=== PATIENT | male | born 1965 | race Caucasian/White ===

== ENCOUNTER 2022-03-12 12:02 | Inpatient (IN) | payer MEDICARE, OTHER ==
[2022-03-12 14:29] LABS: Glucose,Whole Blood 90 mg/dL (75-99)
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
[2022-03-12 14:34] LABS: Basophils # (A) 0.1 k/uL (0-0.2); Basophils % (A) 1 %; Eosinophils # (A) 0.1 k/uL (0-0.7); Eosinophils % (A) 3 %; HCT 45.8 % (39.0-53.0); Lymphocytes # (A) 1.8 k/uL (1.0-4.8); Lymphocytes % (A) 31 %; MCH 32.3 pg (25.0-35.0); MCHC 32.6 g/dL (31.0-37.0); Mean Platelet Volume 7.4; Monocytes # (A) 0.4 k/uL (0-1.0); Monocytes % (A) 7 %; Neutrophils # (A) 3.1 k/uL (1.3-7.7); Neutrophils % (A) 56 %; Platelet Count 330 k/uL (150-450); RBC 4.63 m/uL (4.30-5.90); RDW 13.1 % (11.5-15.5); WBC 5.6 k/uL (3.8-10.6)
[2022-03-12 14:43] LABS: ALT 24 U/L (4-49); AST 29 U/L (17-59); African American GFR (CKD) >90 (>60 ml/min/1.73 sqM); Albumin 4.5 g/dL (3.5-5.0); Alkaline Phosphatase 74 U/L (38-126); Anion Gap 3 mmol/L; Blood Urea Nitrogen 13 mg/dL (9-20); Calcium 9.4 mg/dL (8.4-10.2); Carbon Dioxide 31 mmol/L (22-30); Chloride 103 mmol/L (98-107); Glucose 98 mg/dL (74-99); Non-African American GFR(CKD) >90 (>60 ml/min/1.73 sqM); Sodium 137 mmol/L (137-145); Total Bilirubin 0.6 mg/dL (0.2-1.3); Total Protein 7.1 g/dL (6.3-8.2)
[2022-03-12 14:44] LABS: INR 0.9 (<1.2); Partial Thromboplastin Time 30.2 sec (22.0-30.0); Prothrombin Time 10.3 sec (9.0-12.0)
--- NOTE | 2022-03-12 15:20 | CT ---
EXAMINATION TYPE: CT brain wo con DATE OF EXAM: 03/12/2022 COMPARISON: MRI dated 01/05/2013 HISTORY: Sudden vision loss RT eye CT DLP: 1176.6 mGycm Automated exposure control for dose reduction was used. TECHNIQUE: CT scan of the brain is performed without IV contrast administration. FINDINGS: Left occipitoparietal cortical and subcortical acute infarct without significant hemorrhagic transfor mation. Right frontal cortical and subcortical area of encephalomalacia, possibly representing sequel a of previous trauma/surgical intervention. No acute intracranial hemorrhage. No midline shift, herniation or ventriculomegaly. Unremarkable basa l cisterns, sella and CP angles. Unremarkable orbits. Clear visualized paranasal sinuses and mastoid air cells. Previous right frontop arietal craniotomy. IMPRESSION: Acute left occipitoparietal cortical and subcortical infarct as described above, for urgent neurology consultation.
--- NOTE | 2022-03-12 15:42 | CT ---
EXAMINATION TYPE: CT angio head neck DATE OF EXAM: 03/12/2022 HISTORY: Sudden vision loss RT eye COMPARISON: None available CT DLP: 612.17 mGycm. Automated Exposure Control for Dose Reduction was Utilized. TECHNIQUE: CTA scan of the head and neck is performed with IV Contrast, patient injected with 65 mL of Isovue 370, axial images are obtained, coronal and sagittal reformatted images are reviewed. 3D re constructed images are created on an independent workstation and reviewed. FINDINGS: Carotid/Vascular Structures: Normal caliber and enhancement of the neck arteries and intracranial art eries without significant stenosis, occlusion, dissection, aneurysm or AV malformation. Patent major intracranial venous sinuses. Other: Degenerative changes of the cervical spine. IMPRESSION: No significant arterial abnormality identified.
[2022-03-12] MEDS ORDERED: ASPIRIN 81 MG PO STA (17:06)
--- NOTE | 2022-03-12 17:07 | XR ---
EXAMINATION TYPE: XR chest 2V DATE OF EXAM: 03/12/2022 COMPARISON: NONE HISTORY: Vision loss. Headache. TECHNIQUE: 2 views FINDINGS: Heart is normal. Lungs are clear of consolidation. There are no hilar masses. Costophrenic angles are clear. Bony thorax is intact. IMPRESSION: No active cardiopulmonary disease. Normal heart.
[2022-03-12] MEDS: SODIUM CHLORIDE 0.9% 1,000 ML IV SCH (17:26)
[2022-03-12] MEDS: ATORVASTATIN 20 MG TAB PO SCH (17:27)
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
--- NOTE | 2022-03-12 18:08 | US ---
EXAMINATION TYPE: US carotid duplex BILAT DATE OF EXAM: 03/12/2022 COMPARISON: NONE CLINICAL HISTORY: stroke. stroke EXAM MEASUREMENTS: RIGHT: Peak Systolic Velocity (PSV) cm/sec ----- Right CCA: 68.0 ----- Right ICA: 74.1 ----- Right ECA: 60.1 ICA/CCA ratio: 1.1 RIGHT: End Diastole cm/sec ----- Right CCA: 21.7 ----- Right ICA: 32.2 ----- Right ECA: 11.3 LEFT: Peak Systolic Velocity (PSV) cm/sec ----- Left CCA: 84.5 ----- Left ICA: 93.1 ----- Left ECA: 47.0 ICA/CCA ratio: 1.1 LEFT: End Diastole cm/sec ----- Left CCA: 26.3 ----- Left ICA: 36.1 ----- Left ECA: 10.4 VERTEBRALS (direction of flow): Right Vertebral: Antegrade Left Vertebral: Antegrade Rhythm: Normal Mild plaque bilateral bifurcations. no evidence of increased velocities IMPRESSION: There is antegrade flow in the vertebral arteries. The images and measurements suggest less than 20% stenosis in both internal carotid arteries. Criteria for Assigning % of Stenosis / Diameter reduction (Estimation based on the indirect measurements of the internal carotid artery velocities (ICA PSV). 1. Normal (no stenosis)=ICA PSV < 125 cm/s: ratio < 2.0: ICA EDV<40 cm/s. 2. Less than 50% stenosis=ICA PSV < 125 cm/s: ratio < 2.0: ICA EDV<40 cm/s. 3. 50 to 69% stenosis=ICA PSV of 125 to 230 cm/s: ration 2.0 ? 4.0: ICA EDV 40-100 cm/s. 4. Greater than 70% stenosis to near occlusion= ICA PSV > 230 cm/s: ratio > 4.0: ICA EDV > 100 cm/s. 5. Near occlusion= ICA PSV velocities may be low or undetectable: variable ratio and ICA EDV. 6. Total occlusion=unable to detect flow.
[2022-03-12] MEDS: PRAMIPEXOLE 1 MG TAB PO SCH (21:16)
[2022-03-12] MEDS: HEPARIN SODIUM,PORCINE/PF 5,000 UNIT/0.5 ML SYRINGE SQ SCH (21:17)
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
[2022-03-13] MEDS: HEPARIN SODIUM,PORCINE/PF 5,000 UNIT/0.5 ML SYRINGE SQ SCH ×2 (08:46→19:44)
[2022-03-13] MEDS: ATORVASTATIN 20 MG TAB PO SCH (08:46)
[2022-03-13] MEDS ORDERED: ASPIRIN 81 MG PO SCH (09:00)
[2022-03-13] MEDS ORDERED: CLOPIDOGREL 75 MG TAB PO SCH (09:00)
[2022-03-13 10:10] LABS: Basophils % (A) 1 %; Eosinophils # (A) 0.2 k/uL (0-0.7); Eosinophils % (A) 3 %; HCT 47.6 % (39.0-53.0); HGB 14.8 gm/dL (13.0-17.5); Lymphocytes # (A) 1.8 k/uL (1.0-4.8); Lymphocytes % (A) 30 %; MCH 31.3 pg (25.0-35.0); MCHC 31.2 g/dL (31.0-37.0); MCV 100.3 fL (80.0-100.0); Mean Platelet Volume 7.6; Monocytes # (A) 0.5 k/uL (0-1.0); Monocytes % (A) 8 %; Neutrophils # (A) 3.3 k/uL (1.3-7.7); Neutrophils % (A) 55 %; Platelet Count 367 k/uL (150-450); RBC 4.75 m/uL (4.30-5.90); RDW 13.2 % (11.5-15.5)
[2022-03-13 14:42] LABS: ALT 22 U/L (4-49); AST 28 U/L (17-59); African American GFR (CKD) >90 (>60 ml/min/1.73 sqM); Albumin 4.3 g/dL (3.5-5.0); Alkaline Phosphatase 70 U/L (38-126); Anion Gap 7 mmol/L; Blood Urea Nitrogen 15 mg/dL (9-20); Calcium 9.3 mg/dL (8.4-10.2); Carbon Dioxide 26 mmol/L (22-30); Chloride 104 mmol/L (98-107); Glucose 112 mg/dL (74-99); Non-African American GFR(CKD) >90 (>60 ml/min/1.73 sqM); Potassium 4.6 mmol/L (3.5-5.1); Sodium 137 mmol/L (137-145); Total Bilirubin 0.6 mg/dL (0.2-1.3); Total Protein 6.9 g/dL (6.3-8.2)
[2022-03-13] MEDS: SODIUM CHLORIDE 0.9% 1,000 ML IV SCH (16:58)
[2022-03-13] MEDS: PRAMIPEXOLE 1 MG TAB PO SCH (19:44)
--- NOTE | 2022-03-13 20:45 | CONS ---
CONSULTATION CHIEF COMPLAINT: Decreased vision, right eye, associated with loss of part of the vision. HISTORY OF PRESENT ILLNESS: The patient yesterday developed loss of vision in the right eye, partial, mainly on the right temporal, as he explained, while watching TV. The patient has had a lazy left eye since childhood. The patient denied any headache or pain. The patient denies any history of hypertension or diabetes. Medical system was reviewed. EYE EXAMINATION: Vision right eye 20/25 with reading glasses, and left eye 20/400. Extraocular motility full. Lids normal. Pupils equal and reactive with no relative pupillary defect. Intraocular pressure 19 mmHg, both eyes. Lens shows 1+ nuclear sclerosis. Retina dilated exam within normal limits. Confrontation was full today. ASSESSMENT: Right visual field defect secondary to vascular phenomena. No solid visual field defect was detected today with confrontation. Visual antony are more specific. Patient is advised to have a visual field in the office. MRI is scheduled tomorrow morning. Carotid Doppler should be performed to evaluate the circulation. I will see the patient in the office after discharge if he requests. MMODL / IJN: [id number] /
--- NOTE | 2022-03-14 01:55 | P.PN ---
Subjective Progress Note Date: 03/13/22 This is a 56 year old male who was admitted with right heminanopia that was found by opthalmologist and sent to the ER for further evaluation to find his brain ct was positive for acute, subacute left occipitoparietal cortical and subcortical infarction. Patient is being closely monitored by neurology and opthalmology and undergoing neurological work-up. Carotid less than 20% stenosis with moderate plaque noted and awaiting brain MRI. Patient denies any chest pain or shortness of breath. Patient is afebrile. Patient continues with some visual deficits. Patient is extremely anxious to go home. Review of systems: Constitutional: No reports of fatigue, fever, or chills Cardiovascular: No reports of chest pain or palpitations Respiratory: No reports of shortness of breath or cough GI: no reports of nausea, no reports of of vomiting : No reports of dysuria or retention Neurovascular: no reports of generalized weakness All medications have been reviewed Active Medications Aspirin (Aspirin 81 Mg) 81 mg PO DAILY [facility] Last Admin: 03/13/22 08:47 Dose: 81 mg Atorvastatin Calcium (Atorvastatin 20 Mg Tab) 20 mg PO DAILY [facility] Last Admin: 03/13/22 08:46 Dose: 20 mg Clopidogrel Bisulfate (Clopidogrel 75 Mg Tab) 75 mg PO DAILY [facility] Last Admin: 03/13/22 08:47 Dose: 75 mg Heparin Sodium (Porcine) (Heparin Sodium,Porcine/Pf 5,000 Unit/0.5 Ml Syringe) 5,000 unit SQ Q12HR [facility] Last Admin: 03/13/22 19:44 Dose: 5,000 unit Sodium Chloride (Saline 0.9%) 1,000 mls @ 20 mls/hr IV .Q24H [facility] Last Admin: 03/13/22 16:58 Dose: Not Given Pramipexole Dihydrochloride (Pramipexole 1 Mg Tab) 3 mg PO HS [facility] Last Admin: 03/13/22 19:44 Dose: 3 mg PHYSICAL EXAMINATION: GENERAL: The patient is alert and oriented x4, Well developed, well nourished. HEENT: Pupils are round and equally reacting to light. EOMI. no scleral icterus. No conjunctival pallor. Normocephalic, atraumatic. No pharyngeal erythema. No thyromegaly. CARDIOVASCULAR: S1 and S2 muffled PULMONARY: diminished breath sounds bilaterally with no wheezing or rhonchi noted. ABDOMEN: soft. Nontender on exam. obese. non-distended, normoactive bowel sounds. No palpable organomegaly. MUSCULOSKELETAL: No joint swelling or deformity. EXTREMITIES: No cyanosis, clubbing, or pedal edema. NEUROLOGICAL: Gross neurological examination did not reveal any focal deficits. left visual diminished SKIN: No rashes. 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 Patient is positive for stroke and has been started on statin, plavix, and aspirin. Neuro and opthalm following and work up in progress. Patient is awaiting MRI of the brain. Patient will need neuro follow up in the outpatient setting. Possible event monitor and close cardiology follow up outpatient. Patient is extremely anxious to go home although working on encouraging him to stay to complete the work-up. MRI was delayed as there are several stat cases before him. Recommend to continue neuro checks and await mri. Prognosis is guarded. Possible discharge in 24 hours. The impression and plan of care has been dictated by Sharon Granados, nurse practitioner as directed. MD Holly I have performed a history and examination and MDM of this patient, discussed the same with the dictator, and agree with the dictator's assessment and plan as written ,documented as a scribe. Based on total visit time, I have performed more than 50% of the visit. Any additional findings or plans will be noted. Objective - Vital Signs Vital signs: Vital Signs Temp 98.1 F 03/13/22 12:00 Pulse 71 03/13/22 12:00 Resp 16 03/13/22 12:00 BP 121/78 03/13/22 12:00 Pulse Ox 96 03/13/22 12:00 FiO2 Intake & Output 03/12/22 03/13/22 03/13/22 18:59 06:59 18:59 Intake Total 540 Balance 540 Weight 88.451 kg 88.451 kg Intake: Oral 540 Other: Voiding Method Toilet Toilet Urinal Urinal # Voids 0 1 - Labs CBC & Chem 7: 03/13/22 09:16 03/13/22 09:16 Labs: Abnormal Lab Results - Last 24 Hours (Table) 03/13/22 03/13/22 Range/Units 09:16 09:16 MCV 100.3 H (80.0-100.0) fL Creatinine 0.65 L (0.66-1.25) mg/dL Glucose 112 H (74-99) mg/dL
[2022-03-14 03:58] VITALS: BP 116/77; PULSE 67; RESP 16; TEMP 98.1
[2022-03-14 04:03] LABS: Chol/HDL Ratio 2.88 Ratio; LDL Cholesterol,Calculated 102.2 mg/dL (0.0-131.0); VLDL Calculation 14.72 mg/dL (5.00-40.00)
--- NOTE | 2022-03-14 07:59 | CA ---
Transthoracic Echo Report Name: Darius Gunter Age: 56 Gender: M : 1965 Exam Date: 03/13/2022 07:32 Exam Location: [facility] Ht (in): 69 Wt (lb): 195 Ordering Physician: Katarzyna Emanuel MD Attending/Referring Phys: High [employer] Counselor Laurita Chan RDCS Procedure CPT: Indications: stroke Cardiac Hx: Technical Quality: Fair Contrast 1: Total Dose (mL): Contrast 2: Total Dose (mL): MEASUREMENTS (Male / Female) Normal Values 2D ECHO LV Diastolic Diameter PLAX 4.5 cm 4.2 - 5.9 / 3.9 - 5.3 cm LV Systolic Diameter PLAX 2.8 cm IVS Diastolic Thickness 1.2 cm 0.6 - 1.0 / 0.6 - 0.9 cm LVPW Diastolic Thickness 1.3 cm 0.6 - 1.0 / 0.6 - 0.9 cm LV Relative Wall Thickness 0.6 RV Internal Dim ED PLAX 2.8 cm LA Systolic Diameter LX 3.2 cm 3.0 - 4.0 / 2.7 - 3.8 cm LA Volume 51.9 cm??? 18 - 58 / 22 - 52 cm??? M-MODE Aortic Root Diameter MM 3.5 cm MV E Point Septal Separation 1.0 cm AV Cusp Separation MM 2.1 cm DOPPLER AV Peak Velocity 140.5 cm/s AV Peak Gradient 7.9 mmHg MV Area PHT 3.1 cm??? Mitral E Point Velocity 66.4 cm/s Mitral A Point Velocity 48.6 cm/s Mitral E to A Ratio 1.4 MV Deceleration Time 242.9 ms MV E' Velocity 6.9 cm/s Mitral E to MV E' Ratio 9.7 FINDINGS Left Ventricle Left ventricular ejection fraction is estimated at 60-65 %. Left ventricular cavity size normal. Mild concentric left ventricular hypertrophy. Right Ventricle Normal right ventricular size and function. Unable to estimate the right ventricular systolic pressure. Right Atrium Normal right atrial size. Left Atrium Normal left atrial size. Mitral Valve Mild to moderate mitral regurgitation. Aortic Valve Trileaflet aortic valve. No aortic valve stenosis or regurgitation. Tricuspid Valve Structurally normal tricuspid valve. No tricuspid stenosis, regurgitation or prolapse. Pulmonic Valve [id number] pulmonic regurgitation. Pericardium Normal pericardium. Aorta Normal size aortic root and proximal ascending aorta. CONCLUSIONS Normal left ventricular dimension and systolic function [id number] mitral regurgitation Cannot rule out an echo density was identified on the downstream side of the aortic valve Please see above for further details Previewed by: Dr. Jaison Wallis MD (Electronically Signed) Final Date: 14 Mar 2022 07:58
--- NOTE | 2022-03-14 19:54 | P.DS ---
Providers Date of admission: 03/12/22 16:11 Expected date of discharge: 03/14/22 Attending physician: Katarzyna Emanuel Consults: 03/12/22 16:12 Consult Physician Routine Consulting Provider: Juvencio Lopez Consult Reason/Comments: Hemianopsia Do you want consulting provider notified?: Yes Consult Physician Urgent Consulting Provider: Pedro Tavarez Consult Reason/Comments: Hemianopsia, CVA Do you want consulting provider notified?: Already Contacted Primary care physician: Bebeto Lopezowan [facility] Course: Patient left against medical advice. Final diagnosis Discharge disposition Patient is leaving against medical advice. Please refer to progress notes and other consultations for further documentation. Patient prescriptions sent for aspirin, plavix, and statin, and patient instructed to follow up with neurology and primary care provider in the outpatient setting. Patient was to stay for mri of the brain and patient refusing. Risks versus benefits explained and patient signed AMA form per nursing staff. Hospital course This is a 56-year-old male who was recently admitted with recently visual changes and right heminanopia and was found to have brain ct was positive for acute, subacute left occipitoparietal cortical and subcortical infarction. Neurology work up in progress and was awaiting mri of the brain and patient persistent on leaving. Currently no reports of chest pain, shortness of breath, or palpitations. Patient is afebrile. No reports of nausea or vomiting and patient is tolerating diet. Patient is leaving ama. Guarded prognosis. Physical exam: Gen: This is a 56-year-old male awake, alert and oriented 3, well-developed, well-nourished HEENT: Head is atraumatic, normocephalic. Pupils equal, round. Sclerae is anicteric. NECK: Supple. No JVD. No lymphadenopathy. No thyromegaly. LUNGS: Clear to auscultation. No wheezes or rhonchi. No intercostal retractions. HEART: Regular rate and rhythm. No murmur. ABDOMEN: Soft. Bowel sounds are present. No masses. No tenderness. EXTREMITIES: No pedal edema. No calf tenderness. NEUROLOGICAL: Patient is awake, alert and oriented x3. Cranial nerves 2 through 12 are grossly intact. Please refer to medication reconciliation sheet for a list of medications. The impression and plan of care has been dictated by Sharon Granados, Nurse Practitioner as directed. Dr. Leti MD I have performed a history and examination and MDM of this patient, discussed the same with the dictator, and agree with the dictator's assessment and plan as written ,documented as a scribe. Based on total visit time, I have performed more than 50% of the visit. Patient Condition at Discharge: Stable Plan - Discharge Summary Discharge Rx Participant: Yes New Discharge Prescriptions: New Aspirin 81 mg PO DAILY 30 Days #30 tab Atorvastatin [Lipitor] 20 mg PO DAILY 30 Days #30 tab Clopidogrel [Plavix] 75 mg PO DAILY 30 Days #30 tab Continue Pramipexole [Mirapex] 3 mg PO HS Discharge Medication List Pramipexole [Mirapex] 3 mg PO HS 03/12/22 [History] Aspirin 81 mg PO DAILY 30 Days #30 tab 03/13/22 [Rx] Atorvastatin [Lipitor] 20 mg PO DAILY 30 Days #30 tab 03/13/22 [Rx] Clopidogrel [Plavix] 75 mg PO DAILY 30 Days #30 tab 03/13/22 [Rx] Follow up Appointment(s)/Referral(s): Arlyn Hubbard MD [STAFF PHYSICIAN] - 1 Week Rudy Carey MD [REFERRING] - 1 Week Bebeto Marcial DO [Primary Care Provider] - 1-2 days Activity/Diet/Wound Care/Special Instructions: event monitor on dc per neuro DC pending MRI or AMA Activity Limited until follow-up Follow-up with primary care provider discharge Follow-up with neurologist this week Follow-up with cardiology this week Continue taking medications as prescribed Discharge Disposition: Left Against Medical Advice
== END 2022-03-14 06:49 | disposition left against medical advice (07) | DRG 66 ==
LOC: EC 12:02 → 3SCARD 16:11
PROVIDERS: ADMIT Hospitalist; ATTEND Hospitalist
DX: I63.40 Cerebral infarction due to embolism of unspecified cerebral artery (principal); H53.461 Homonymous bilateral field defects, right side; R29.701 NIHSS score 1; H47.012 Ischemic optic neuropathy, left eye; G93.9 Disorder of brain, unspecified; R00.1 Bradycardia, unspecified; Z79.899 Other long term (current) drug therapy; Z53.29 Procedure and treatment not carried out because of patient's decision for other reasons; Z87.820 Personal history of traumatic brain injury; Z87.891 Personal history of nicotine dependence; Z82.49 Family history of ischemic heart disease and other diseases of the circulatory system; Z83.3 Family history of diabetes mellitus
CPT/HCPCS: 36415; 70450; 70496; 70498; 71046; 80053; 80061; 83036; 84443; 85025; 85610; 85730; 93005; 93306; 93880; 96372; 99285

== ENCOUNTER 2022-08-13 07:34 | Day surgery (SDC) | payer MEDICARE, OTHER ==
[2022-08-13] MEDS ORDERED: SODIUM CHLORIDE 0.9% 500 ML 500 ML IV ONE (07:55)
[2022-08-13 08:06] LABS: Basophils % (A) 1 %; Eosinophils # (A) 0.3 k/uL (0-0.7); Eosinophils % (A) 5 %; HCT 43.3 % (39.0-53.0); HGB 14.8 gm/dL (13.0-17.5); Lymphocytes # (A) 2.4 k/uL (1.0-4.8); Lymphocytes % (A) 37 %; MCH 32.9 pg (25.0-35.0); MCHC 34.1 g/dL (31.0-37.0); MCV 96.4 fL (80.0-100.0); Monocytes # (A) 0.5 k/uL (0-1.0); Monocytes % (A) 7 %; Neutrophils # (A) 3.1 k/uL (1.3-7.7); Neutrophils % (A) 48 %; Platelet Count 304 k/uL (150-450); RDW 13.3 % (11.5-15.5); WBC 6.4 k/uL (3.8-10.6)
[2022-08-13 08:19] VITALS: TEMP 97.9
[2022-08-13 08:29] LABS: ALT 32 U/L (4-49); African American GFR (CKD) >90 (>60 ml/min/1.73 sqM); Albumin 4.5 g/dL (3.5-5.0); Anion Gap 10 mmol/L; Blood Urea Nitrogen 15 mg/dL (9-20); Calcium 9.4 mg/dL (8.4-10.2); Carbon Dioxide 27 mmol/L (22-30); Chloride 103 mmol/L (98-107); Glucose 92 mg/dL (74-99); Non-African American GFR(CKD) >90 (>60 ml/min/1.73 sqM); Sodium 140 mmol/L (137-145); Total Bilirubin 0.8 mg/dL (0.2-1.3); Total Protein 6.8 g/dL (6.3-8.2)
[2022-08-13 08:32] LABS: AST 35 U/L (17-59); Alkaline Phosphatase 71 U/L (38-126); Potassium 4.5 mmol/L (3.5-5.1)
[2022-08-13] MEDS ORDERED: fentaNYL (PF) 50 MCG/ML 2 ML AMP ONE (09:37)
[2022-08-13] MEDS ORDERED: BENZOCAINE SPRAY 1 CAN TOPICAL ONE ×2 (09:40→09:45)
[2022-08-13] MEDS ORDERED: MIDAZOLAM 2 MG/2 ML VIAL IV ONE ×3 (09:51→09:53)
[2022-08-13] MEDS ORDERED: fentaNYL (PF) 50 MCG/ML 2 ML AMP IV ONE (09:52)
[2022-08-13] MEDS ORDERED: LIDOCAINE 1% INJ 10MG/ML (30 ML VIAL-PF) SQ ONE (10:14)
--- NOTE | 2022-08-13 10:30 | P.EPPROC ---
- EP Procedure Note Electrophysiology Procedure Note: Loop monitor implant Primary physicians: Dr. Summers Belt Splicer: Dr. Larios Indication: Embolic occipitoparietal cortical and subcortical CVA, left-sided No RICKIE abnormalities: No intracardiac masses, normal valves, no PFO Genetic workup for hypercoagulable state negative Patient was brought to the EP lab in a fasting state. Written informed consent was obtained prior to the procedure. The left pectoral area was prepped and draped per protocol. Intravenous antibiotic was administered preoperatively. A subcutaneous Loop monitor was implanted successfully and the wound was closed per protocol. The device was programmed to detect significant jessica- arrhythmic and tachy-arrhythmic events, per protocol. Device and programming details: A. fib detection protocol Patient underwent EP procedure under conscious sedation/moderate sedation, monitoring of the level of consciousness and physiologic parameters including but not limited to vital signs and oxygenation. Patient tolerated the procedure well without any acute complications. Start time: 1014 Stop time: 1023
--- NOTE | 2022-08-13 10:33 | P.PRLE ---
RE: Darius Gunter Dear Dr Melina Scanlon underwent a transesophageal echo. No valvular abnormalities were noted. He did not have an ASD or PA for either No intracardiac masses noted Previously he's had a genetic workup for hypercoagulable states A loop monitor was implanted to evaluate for any paroxysmal atrial fibrillation that can explain his left occipital parietal cortical and subcortical embolic infarcts I will keep you posted regarding his progress Thank you for entrusting me with the care of the patient Warm regards Sincerely Dariel Larios
--- NOTE | 2022-08-13 12:42 | P.PCN ---
Date of Procedure: 08/13/22 Operative Findings: TRANSESOPHAGEAL ECHOCARDIOGRAM THREAT ANALYST: EDIS LARIOS MD, RPVI INDICATION: This is a 57-year-old gentleman with no risk factors from before was diagnosed recently was embolic stroke. He underwent transthoracic echocardiogram and that revealed possible echodensity attached to the LVOT side of the aortic valve concerning for possible tumor/fibroblastoma. He was brought today for further e valuation and undergoing a RICKIE SEDATION: Conscious sedation COMPLICATION: None LEVEL OF SEDATION Moderate to severe elevation of 10 minutes PROCEDURE DESCRIPTION: After obtaining an informed consent, the patient was brought to transesophageal echocardiogram room. Pulse oximetry and heart monitors were attached to the patient. The patient throat was sprayed using lidocaine. The patient was turned into left lateral position. After that a bite guard was placed. After an appropriate conscious sedation was initiated, the transesophageal echocardiogram was advanced through a bite guard into the mid esophagus. A 2-D echocardiogram images, color Doppler images, continuous wave images, pulse-wave images, of various cardiac structure were performed. After that the transesophageal echocardiogram probe was advanced into the stomach and fixed to obtain transgastric view was. The probe was brought into the mid esophagus. Inter-atrial septum was interrogated using 2D images, color Doppler images, and then contrast study. After that transesophageal echocardiogram was withdrawn out and upon withdrawing the descending thoracic aorta all the way up to the arch was evaluated. FINDING: The left ventricular dimension and systolic function appeared to be normal. Ejection fraction appeared to be in the range of 55% was no evidence of wall motion abnormalities. Right ventricle appeared to be of normal size and function. The left atrium is mildly dilated. The left atrial appendage appeared to be free from any thrombus. The interatrial septum appeared to be hyperdynamic was no evidence of any PFO or ASD. The aortic valve appears to be trileaflet valve was evidence of thickening involving the left coronary cusp but no clear-cut evidence off tumor or vegetation seen. The mitral valve also appeared to be mildly thickened with mild to moderate mitral regurgitation. Mild tricuspid regurgitation was seen. No evidence of pericardial effusion identified. CONCLUSION: 1. Normal biventricular dimension and systolic function. The left ventricle systolic function appeared to be in the range of 55%. 2. Aortic sclerosis with no evidence of an aortic stenosis or insufficiency and no evidence of tumor identified on the aortic valve. 3. Mildly thickened mitral valve leaflets was mild to moderate mitral regurgitation 4. Intact interatrial septum was no evidence of ASD or PFO. Intact left atrial appendage 5. Normal tricuspid valve and pulmonic valve 6. No evidence of pericardial effusion
[2022-08-13 16:12] LABS: Chol/HDL Ratio 1.95 Ratio; LDL Cholesterol,Calculated 52.7 mg/dL (0.0-131.0)
[2022-08-13 16:37] VITALS: BP 113/75; PULSE 52; RESP 16
== END 2022-08-13 11:37 | disposition home or self-care (01) ==
LOC: CATHCVL 07:34
PROVIDERS: ATTEND Internal Medicine Interventional Cardiology
DX: I48.0 Paroxysmal atrial fibrillation (principal); I63.40 Cerebral infarction due to embolism of unspecified cerebral artery; I70.0 Atherosclerosis of aorta; I34.0 Nonrheumatic mitral (valve) insufficiency
CPT/HCPCS: 93312; 93320; 93325; 33285; 80061; 80053; 85025; C1764; J2250; J0690; J2001; J3010